=== PATIENT | female | born 1975 | race Two or more races ===

== ENCOUNTER → 2016-06-18 | Day surgery (SDC) | payer OTHER ==
--- NOTE | 2016-06-17 19:51 | Pre-Procedure Note/Attestation ---
Pre-Procedure Note/Attestation Complete Prior to Procedure Planned Procedure: bilateral Procedure Narrative: 1. Microsuspension laryngoscopy 2. Removal of vocal cord nodules Indications for Procedure Pre-Operative Diagnosis: Vocal cord nodules Attestation I attest that I discussed the nature of the procedure; its benefits; risks and complications; and alternatives (and the risks and benefits of such alternatives ), prior to the procedure, with the patient (or the patient's legal sales utility representative). I attest that, if there was a reasonable possibility of needing a blood transfusion, the patient (or the patient's legal sales utility representative) was given the [facility] standardized written summary, pursuant to the Valeriano Chano Blood Safety Act ([place] Health and Safety Code # 1645, as amended). I attest that I re-evaluated the patient just prior to the surgery and that there has been no change in the patient's H&P, job # MOUNA RAMON Jun 17, 2016 19:51
[2016-06-18] VITALS (11 sets, daily range): BP systolic 109–134; BP diastolic 53–79
[~2016-06-18] VITALS: Ht 172.7 cm; Wt 62.6 kg
[~2016-06-18] MED LIST: ACETAMINOPHEN325 M1 ORAL; Alfentanil 2ml Inj ONE; Dexamethasone 4mg/ml vial IVP ONE; Flumazenil 0.1mg/ml 5ml Inj IV ONE; LR 1000ml ONE; Lidocaine 1% MPF 10mg/ml 5ml INJ ONE; Metoclopramide 10mg/2ml Inj IVP PRN; Midazolam 2mg/2ml Inj ONE; NKM; NORCO 5-325 TA1 EAC1 ORAL; NS Irrig 1000ml ONE; Naloxone 0.4mg/ml Inj ONE; Norco 5mg/325mg tab ORAL PRN; Sterile Water Irrig 1000ml IRRIG ONE; ceFAZolin 1gm/50ml Premix 50 ML IV ONE; ceFAZolin sod 1 GM in D5W 55 ML IV ONE
--- NOTE | 2016-06-18 02:19 | Pre-op HX & Phy Repo 2 SIG ---
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 ALLERGIES: She is allergic to Morphine and Reglan. PAST MEDICAL HISTORY: Dorsalgia and nodule of the vocal cord was noted. SOCIAL HISTORY: , three children. Denies tobacco, alcohol, or drug. PAST SURGICAL HISTORY: Appendectomy, breast reduction, vocal cord surgery in 2012. Other medical problems, back issue was noted before. FAMILY MEDICAL HISTORY: Cancer and diabetes. She eats all foods. MEDICATIONS: She takes no medicine at this time. PHYSICAL EXAMINATION: VITAL SIGNS: Height 5 feet 8 inches and 137 pounds. BMI 20.38. Blood pressure was 120/80 when I saw in the office, temperature 98.6 degrees, pulse 73, and respiratory rate 13. HEENT: Head is normocephalic. Eyes, PERRLA. EOMI. Lips, tongue, pharynx, and neck are all normal. Fiberoptic exam indicated 2 mm bilateral vocal cord nodules. CHEST: Clear to auscultation and percussion. HEART: Normal S1 and S2. No S3 or S4. No murmur, bruit, gallop, or rub. GENITOURINARY: Exam was not done as it was not indicated for this surgery. EXTREMITIES: Grossly normal. NEUROLOGIC: Intact. ASSESSMENT: She is a candidate for surgery included oral surgery tomorrow. She does not need labs. Nelson Pierre M.D. DR: STELLA JOB#: [id number] CC: ÁNGEL
--- NOTE | 2016-06-18 08:36 | Brief Operative Note ---
Immediate Post Operative Note Operative Note Chief Complaint: voice disorder Pre-op Diagnosis: Vocal cord nodules Procedure: Microsuspension laryngoscopy Removal of left vocal cord nodule Post-op Diagnosis: same as pre-op Surgeon: Claudio Ramon Melting Operator: none Additional Surgeons: none Anesthesiologist: Bhavya Anesthesia: general Specimen: yes - left vocal cord nodule Complications: none Condition: stable Estimated Blood Loss: minimal Drains: none Implant(s) used?: No MOUNA RAMON Jun 18, 2016 08:36
--- NOTE | 2016-06-18 08:42 | Discharge Instructions ---
Discharge Instructions Discharge Instructions Follow up with: Dr. Ramon tomorrow 11:30AM Diet: regular Resume Normal Activity?: Yes Pneumonia Vaccine: pt refused vaccine Influenza Vaccine (Dec to May): pt refused vaccine Follow Up Orders pt has printed instructions from my office Return to Work/School on: Jul 02, 2016 Special Instructions Limited speaking next 4 days, if needs to speak only regular voice No whispering or yelling For Surgical Patients Dressing Care: keep dry and clean Contact your physician for: bleeding, pain, tenderness, redness, swelling, yellowish discharge in the op. site For Congestive Heart Failure Reminder Report to your physician any weight gain of 5 pounds or more in one week. MOUNA RAMON Jun 18, 2016 08:42
--- NOTE | 2016-06-18 10:27 | General Progress Note ---
Progress Note Progress Note Post op note In RR 1.5 hours post surgery-pt is stable, 99% on room air, sleeping. Immediately post op she was vocalzing that she could not breathe. Her PAO2 on 30% O2 was 99-100% and EKG was normal as well as heart rate of 81 over approximately 10-15 minutes in OR post extubation. In RR, she complained of same symptoms, but all her vitals and voice were good. Now 1.5 hours later she was sleep comfortably. I assume that she was either concerned that her throat was numb (Lidocaine spray ) and post anesthesia interpreted that as inability to breathe and or post anesthesia delirium. She is fine now and never was in any danger physiologically. This was discussed with Dr. Latif as well MOUNA RAMON Jun 18, 2016 10:27
--- NOTE | 2016-06-18 18:59 | Operative Note - Dictated ---
DATE OF OPERATION: 06/18/2016 SURGEON: Nelson Pierre M.D. COLLECTIONS SPECIALIST: None. ANESTHESIOLOGIST: Dr. Boyer. ANESTHESIA: General oral endotracheal anesthesia. INDICATION FOR SURGERY: The patient with vocal cord nodules secondary to issues at work. PREOPERATIVE DIAGNOSIS: The patient with vocal cord nodules secondary to issues at work. POSTOPERATIVE DIAGNOSIS: The patient with vocal cord nodules secondary to issues at work. FINDINGS: Very small nodule on the right, not worth removing on the left and it was removed and sent for pathology. PROCEDURE: 1. Microsuspension laryngoscopy. 2. Excision of left true vocal fold nodule between the anterior and mid portions of the left vocal fold. DESCRIPTION OF PROCEDURE: The patient is prepped and draped in the usual manner. Please note that she had concerns about veneers on her teeth, so pre- and postoperative photos were taken and there was no damage to the teeth. A time-out was performed. I then placed a tooth guard over the teeth and placed a small Dedo scope. Visualized the vocal cords, the right nodule was extremely small and not worth removing, cause more damage. The left cord was large enough to remove. This was done by grasping with a left biter making a small incision anterior and posterior and lifted out to minimize damage to the vocal cord. This was sent for permanent section. A 3 mL 1% lidocaine were placed topically and then suctioned. The patient tolerated this well. She was extubated, having no problems breathing, good oxygenation, and she could talk without difficulty, but she was convinced she could not breathe. An hour and a half later, I saw her on the recovery room. She was fine and asleep. I then proceeded say she could go with a secondary recovery room prior to discharge and she woke up, complaining of immense pain. There is an issue and that she told me she was allergic to all and did not want any pain medicines when I saw her in the office last week to write prescriptions including pain medicine. She stated she is allergic to morphine and does not like codeine. She now is stating she wants codeine. So, I have written her one pill to try it in the hospital, keep her for four hours. If she is stable, then they can go and roller picker. I will write them a new prescription, but I do not have triplicates at the hospital. Her Mother or can come by the office and pick it up. This has been discussed with her Mother and the patient. Otherwise, physiologically she is very stable. COUNTS: Sponge and needle count was correct. ESTIMATED BLOOD LOSS: 1 mL. COMPLICATIONS: None. DRAINS: None. Nelson Pierre M.D. DR: ANDRÉS JOB#: [id number] CC: ÁNGEL
== END | disposition home or self-care (01) ==
LOC: SUR 06:23
DX: J38.1 Polyp of vocal cord and larynx (principal); M54.9 Dorsalgia, unspecified; Z88.5 Allergy status to narcotic agent; Z88.8 Allergy status to other drugs, medicaments and biological substances
CPT/HCPCS: 31541; 81025; J0690; J2250; J2310; J2405; J3490; J7120; 94003; 94150